=== PATIENT | male | born 1965 | race African-American/Black ===

== ENCOUNTER 2023-07-04 23:04 | Emergency (ER) | payer MEDICAID, OTHER ==
[~2023-07-04] VITALS: Ht 175.3 cm; Wt 104.3 kg
[~2023-07-04 23:04] MED LIST: CARI250T PO; HYDR-4354 PO
[2023-07-04] MEDS ORDERED: HYDR12.55 PO (23:44)
[2023-07-05 00:05] VITALS: TEMP 98.9
[2023-07-05] MEDS ORDERED: ONDANSETRON 4 MG TAB.RAPDIS ONE (00:16)
[2023-07-05] MEDS: ONDANSETRON 4 MG TAB.RAPDIS SL ONE (00:18)
[2023-07-05 01:06] LABS: ABG BASE EXCESS -0.8 mmol/L; ABG OXYGEN SATURATION 96.2 % (92.0-98.5); ABG PCO2 40.4 mmHg (35.0-45.0); ABG PH 7.392 (7.350-7.450); ABG PO2 85.7 mmHg (75.0-100.0); ABG TOTAL HEMOGLOBIN 13.4 G/dL (13.5-18.0); COHb 1.7 % (0.5-1.5); MetHb 0.3 % (0.0-1.5); O2Hb 94.3 % (94.0-97.0); SITE, ABG Right Radial; VENT MODE, BG room air
[2023-07-05] MEDS ORDERED: BENA10TA74 PO (01:07)
[2023-07-05] MEDS ORDERED: CARI350T PO (01:07)
[2023-07-05] MEDS ORDERED: HYDR-3980 PO (01:07)
[2023-07-05] MEDS ORDERED: ALPR2TAB7 PO (01:07)
[2023-07-05] MEDS ORDERED: ALPR1TAB2 PO (01:21)
[2023-07-05 01:32] VITALS: BP 138/95; O2SAT 98
== END 2023-07-05 01:32 | disposition home or self-care (01) ==
LOC: ER 23:09
DX: R51.9 Headache, unspecified (principal); I10 Essential (primary) hypertension; R11.0 Nausea; R42 Dizziness and giddiness; Z76.0 Encounter for issue of repeat prescription; Z87.39 Personal history of other diseases of the musculoskeletal system and connective tissue; Z88.6 Allergy status to analgesic agent
CPT/HCPCS: 99283; 82803; 36600 ×2; Q0162

== ENCOUNTER 2023-08-22 18:14 | Emergency (ER) | payer MEDICAID ==
[~2023-08-22] VITALS: Ht 175.3 cm; Wt 98.4 kg
[~2023-08-22 18:14] MED LIST changes: +ALPR1TAB2 PO; +BENA10TA74 PO; +CARI350T PO; +HYDR-3980 PO; +HYDR12.55 PO
[2023-08-22 19:26] VITALS: BP 142/74; TEMP 98.7; O2SAT 100
[2023-08-22] MEDS ORDERED: AMOX-430 PO (20:10)
[2023-08-22] MEDS ORDERED: TRAM-351 PO (20:19)
[2023-08-22] MEDS ORDERED: HYDROCODONE/APAP 5/325MG TABLET ONE (20:28)
[2023-08-22] MEDS: HYDROCODONE/APAP 5/325MG TABLET PO ONE (20:33)
== END 2023-08-22 20:39 | disposition home or self-care (01) ==
LOC: ER 18:34
DX: L03.012 Cellulitis of left finger (principal); I10 Essential (primary) hypertension; Z79.899 Other long term (current) drug therapy; Z88.8 Allergy status to other drugs, medicaments and biological substances

== ENCOUNTER 2023-09-12 18:56 | Emergency (ER) | payer MEDICAID ==
[~2023-09-12] VITALS: Ht 175.3 cm; Wt 86.2 kg
[~2023-09-12 18:56] MED LIST changes: +AMOX-430 PO; +TRAM-351 PO
[2023-09-12] MEDS ORDERED: BENA10TA74 PO (19:15)
[2023-09-12 19:20] VITALS: BP 128/80; TEMP 98.7; O2SAT 98
== END 2023-09-12 19:20 | disposition home or self-care (01) ==
LOC: ER 19:00
DX: I10 Essential (primary) hypertension (principal); Z76.0 Encounter for issue of repeat prescription; Z88.8 Allergy status to other drugs, medicaments and biological substances; Z88.6 Allergy status to analgesic agent